=== PATIENT | female | born 1995 | race Caucasian/White ===

== ENCOUNTER 2016-12-07 03:20 | Outpatient (CLI) | payer MEDICAID ==
[~2016-12-07 03:20] MED LIST: MACROBID 100 M100 MG PO; PRENATAL VIT1 TAB PO; TYLENOL EXTRA500 M1 PO
[2017-02-10] MEDS ORDERED: COLACE-DPS100 MG PO (17:02)
[2017-02-10] MEDS ORDERED: PRENATAL VIT1 TAB PO (17:02)
[2017-02-10] MEDS ORDERED: MOTRIN-DPS800 MG PO (17:02)
[2017-02-10] MEDS ORDERED: NIPPLECREAM TP (17:03)
[2017-02-10] MEDS ORDERED: TYLENOL EXTRA500 M1 PO (17:03)
== END 2016-12-07 11:56 | disposition home or self-care (01) ==
LOC: BC 03:20 → 2LDRP 03:20 → BC 11:56
DX: O99.89 Other specified diseases and conditions complicating pregnancy, childbirth and the puerperium (principal); R10.9 Unspecified abdominal pain; Z3A.00 Weeks of gestation of pregnancy not specified

== ENCOUNTER 2017-02-06 11:40 | Outpatient (CLI) | payer MEDICAID ==
[~2017-02-06] VITALS: Ht 157.5 cm; Wt 65.3 kg
[2017-02-10] MEDS ORDERED: COLACE-DPS100 MG PO (17:02)
[2017-02-10] MEDS ORDERED: PRENATAL VIT1 TAB PO (17:02)
[2017-02-10] MEDS ORDERED: MOTRIN-DPS800 MG PO (17:02)
[2017-02-10] MEDS ORDERED: TYLENOL EXTRA500 M1 PO (17:03)
[2017-02-10] MEDS ORDERED: NIPPLECREAM TP (17:03)
== END 2017-02-06 13:17 | disposition home or self-care (01) ==
LOC: 2LDRP 11:40 → BC 11:40
DX: O47.1 False labor at or after 37 completed weeks of gestation (principal); Z3A.40 40 weeks gestation of pregnancy

== ENCOUNTER 2017-02-07 14:40 | Inpatient (IN) | payer MEDICAID ==
[~2017-02-07] VITALS: Ht 157.5 cm; Wt 64.4 kg
--- NOTE | ~2017-02-07 | HP ---
ADMIT: 02/07/2017 RM/LOC: 220 [facility] MR#: [id number] [address] [address] ALEE WOODARD [address] [place] [address] History and Physical SEX: F AGE: 21 : 1995 DATE OF SERVICE: CHIEF COMPLAINT: Rupture of membranes. HISTORY OF PRESENT ILLNESS: The patient is a 21-year-old, 2, para 1-0- 0-1, with an intrauterine at 40 and 4/7th weeks by last menstrual period consistent with a 24-week ultrasound, who presents to Labor and Delivery with complaints of spontaneous rupture of membranes and uterine contractions. The patient was checked by the nurses and found to be grossly ruptured. She was also noted to be 4 cm dilated and suman regularly. The patient was therefore admitted for active labor. PAST MEDICAL HISTORY: Pyelonephritis during . PAST SURGICAL HISTORY: None. FAMILY HISTORY: Maternal uncle with diabetes. Mother with hypertension. Aunt with lupus. SOCIAL HISTORY: The patient denies alcohol, tobacco, or illicit drug use. She quit smoking in 2014. The patient is a [id number] mom. She is single, but the father of the baby, Javier, is involved. MEDICATIONS: 1. vitamins 1 tablet p.o. daily. 2. Nitrofurantoin 100 mg p.o. at bedtime. ALLERGIES: NO KNOWN MEDICAL ALLERGIES. REVIEW OF SYSTEMS: Significant for uterine contractions and rupture of membranes as described in history of present illness. The patient denies vaginal bleeding or decreased movement. OBSTETRICAL LABORATORIES: Blood type O positive. Antibody screen negative. RPR nonreactive. Rubella immune. HIV negative. Gonorrhea and chlamydia negative. Hepatitis B surface antigen negative. Diabetic screen 86. Group B strep negative. PHYSICAL EXAMINATION: GENERAL: Well-developed, well-nourished female, alert and oriented x3 in mild distress with uterine contractions. VITAL SIGNS: Blood pressure 118/71, pulse 78, respirations 16, temperature 96.8 degrees Fahrenheit, oxygen saturation 94% on room air. HEENT: Head is normocephalic and atraumatic. Pupils are equal round. Extraocular muscles are intact. NECK: Supple. Trachea midline. Thyroid not palpable. HEART: Regular rate and rhythm. LUNGS: Clear to auscultation bilaterally. ABDOMEN: Soft, nontender, gravid. EXTREMITIES: No clubbing, cyanosis, or edema. ADMIT: 02/07/2017 RM/LOC: 220 [facility] MR#: [id number] [id number] [address] ALEE WOODARD [facility] [address] [place] [address] History and Physical SEX: F AGE: 21 : 1995 NEUROLOGIC: Cranial nerves II through XII grossly intact. 2+ deep tendon reflexes noted. PELVIC: Sterile vaginal examination by the nurse on admission reveals the cervix to be 4 cm dilated, 80% effaced, 0 station. heart tones are in the 120s with 15 x 15 accelerations, moderate long-term variability, and no decelerations. Uterine contractions are noted every 2 to 3 minutes on the monitor. ASSESSMENT AND PLAN: 1. This is a 21-year-old, 2, para 1-0-0-1, with an intrauterine at 40 and 4/7th weeks by last menstrual period consistent with a 24-week ultrasound, who presents to Labor and Delivery in active labor. 2. Group B strep negative. No prophylaxis will be provided. 3. Fetus is vertex and overall reassuring. Evelia Nicole MD/ janie JOB #: [id number] CC: John Dent, Attending Physician John Dent, Family Physician
--- NOTE | ~2017-02-07 | FD ---
ADMIT: 02/07/2017 RM/LOC: 220 [facility] MR#: [id number] [facility] [address] [place] [id number] JONES DAVEALEE MELGAR [address] [place] [address] [address] [place], [place] [address] Final Diagnosis SEX: F AGE: 21 : 1995 ADMISSION DATE: 02/07/2017 DISCHARGE DATE: 02/09/2017 PRINCIPAL DIAGNOSES: 1. Intrauterine at 40 and 4/7th weeks' estimated gestational age. 2. Spontaneous rupture of membranes. 3. Active labor. REASON FOR HOSPITALIZATION: The patient is a 21-year-old, female, 2, para 1, who presented at 40 and 1/2 weeks' estimated gestational age in active labor. OPERATIVE PROCEDURES: The patient underwent a spontaneous vaginal delivery on 02/07/2017. John Dent MD/ janie JOB #: [id number] CC: John Dent MD, Attending Physician John Dent MD, Family Physician
[2017-02-10] MEDS ORDERED: COLACE-DPS100 MG PO (17:02)
[2017-02-10] MEDS ORDERED: MOTRIN-DPS800 MG PO (17:02)
[2017-02-10] MEDS ORDERED: PRENATAL VIT1 TAB PO (17:02)
[2017-02-10] MEDS ORDERED: NIPPLECREAM TP (17:03)
[2017-02-10] MEDS ORDERED: TYLENOL EXTRA500 M1 PO (17:03)
--- NOTE | 2017-03-03 08:09 | OR ---
ADMIT: 02/07/2017 RM/LOC: 220 [facility] MR#: [id number] [address] [address] KAREN DAVE ALEE [address] [place] [address] [address] [place], [place] [id number] Operative/Delivery Room Report SEX: F AGE: 21 : 1995 SURGERY DATE: 02/08/2017 SURGEON: Evelia Nicole MD The patient delivered a viable male by spontaneous vaginal delivery at 0318. A nuchal cord x1 was reduced. The was placed on the mother's abdomen, and the cord was doubly clamped and cut. The infant was handed off to the awaiting nurse. Cord blood was sent. The infant's weight was 3660 g. scores were 8 and 9. The placenta then delivered spontaneously intact with a three-vessel cord. Twenty units of Pitocin were infused with intravenous fluids. An examination of the perineum revealed a second-degree laceration, which was repaired with 3-0 Vicryl in the usual fashion with excellent hemostasis. Estimated blood loss for the entire procedure was 300 mL. The patient and the infant are in her room in stable condition. Evelia Nicole MD/ janie JOB #: [id number] CC: John Dent, Attending Physician John Dent, Family Physician
== END 2017-02-09 12:30 | disposition home or self-care (01) | DRG 775 ==
LOC: BC 14:40 → 2LDRP 14:40
PROVIDERS: ADMIT Obstetrics & Gynecology
PROC: 10E0XZZ Delivery of Products of Conception, External Approach (ICD-10-PCS; principal; 2017-02-08)
PROC: 0KQM0ZZ Repair Perineum Muscle, Open Approach (ICD-10-PCS; principal; 2017-02-08)
DX: O48.0 Post-term pregnancy (principal); O69.81X0 Labor and delivery complicated by cord around neck, without compression, not applicable or unspecified; O70.1 Second degree perineal laceration during delivery; Z3A.40 40 weeks gestation of pregnancy; Z37.0 Single live birth

== ENCOUNTER 2017-02-12 05:49 | Emergency (ER) | payer SELFPAY ==
[~2017-02-12 05:49] MED LIST changes: +COLACE-DPS100 MG PO; +MOTRIN-DPS800 MG PO; +NIPPLECREAM TP
--- NOTE | 2017-02-15 01:36 | ER ---
ADMIT: 02/12/2017 RM/LOC: ER [facility] MR#: [id number] [id number] [place], [place] [phone] KAREN DAVE ALEE [address] [place] [address] [address] [place] [address] Emergency Room Report SEX: F AGE: 21 : 1995 DATE: 02/12/2017 ADDENDUM: A 21-year-old female, who presents to the ER complaining of suprapubic abdominal pain and pelvic pain that has been going on for the past 1-2 hours. She did have a normal vaginal delivery 4 days ago. She states there were no complications and she went home and has been doing fine until this morning. Since this morning, she developed severe pelvic pain and has been passing clots when going to urinate. She denies any nausea, vomiting, or problems with urination or bowel movements. At this point, there are labs pending and an ultrasound that is pending. Care of the patient will be handed off to Dr. Nogueira to followup of the test results and final disposition of the patient. Ken Childers MD/ janie JOB #: [id number] CC: Ken Childers MD, Attending Physician John Dent MD, Family Physician
--- NOTE | 2017-02-17 23:42 | ER ---
ADMIT: 02/12/2017 RM/LOC: ER [facility] MR#: [id number] [id number] [place], [place] [address] KAREN DAVE ALEE [address] [place] [address] [address] [place], [place] [address] Emergency Room Report SEX: F AGE: 21 : 1995 DATE: 02/12/2017 ADDENDUM: TIME: 0549 hours[address] refer to [address] Childers's T-sheet for complete H and P. HISTORY OF PRESENT ILLNESS: Briefly, the patient is a 21-year-old, comes in with suprapubic pain. She is 4 days status post vaginal delivery with no complications. She is having some bleeding, but not severe. Following up on her ultrasound, the ultrasound showed no retained products of conception, basically negative, no evidence of appendicitis. Urine was normal. Lactate was normal. Coags were normal. CBC was normal except for white count 10.6. Chemistries all normal except alk phos 145. I talked to the OB crew, they will follow her up this week. The patient was feeling better. She received 2 of morphine. ASSESSMENT: 1. Abdominal pain. 2. Four days status post vaginal delivery with some vaginal bleeding. PLAN: Follow up with OB this week. Return if worse. Continue care. Jasson Nogueira MD/ janie JOB #: [id number] CC: Ken Childers MD, Attending Physician John Dent MD, Family Physician John Dent MD
== END 2017-02-12 08:35 | disposition home or self-care (01) ==
LOC: ER 05:49
DX: O99.89 Other specified diseases and conditions complicating pregnancy, childbirth and the puerperium (principal); R10.30 Lower abdominal pain, unspecified; R10.2 Pelvic and perineal pain